=== PATIENT | female | born 1950 | race African-American/Black ===

== ENCOUNTER 2020-12-15 14:09 | Outpatient (REF) | payer MEDICARE, OTHER, SELFPAY ==
[2020-12-15 15:26] LABS: C Reactive Protein 0.24 mg/dL (< or = 0.50)
[2020-12-15 16:07] LABS: Erythrocyte Sedimentation Rate 12 MM/HR (0-20)
== END 2020-12-15 14:10 | disposition home or self-care (01) ==
LOC: HO.LAB 14:09
PROVIDERS: Visit Provider Psychiatry & Neurology Neurology
DX: G44.85 Primary stabbing headache (principal)
CPT/HCPCS: 36415; 85652; 86140